=== PATIENT | male | born 1930 | race Caucasian/White ===

== ENCOUNTER 2017-03-24 12:03 | Inpatient (IN) ==
--- NOTE | 2017-03-24 13:48 | XRay Report ---
XR chest 2V Indication: Lung mass. Chest 2 views: Comparison 02/29/2016 plain film, and CT 02/26/2016. Rightr middle lobe mass is again shown measuring approximately 3 cm diameter. On a CT PE study from 02/26/2016, the lesion was 20 mm diameter. Chronic bilateral pleural effusions or pleural thickening shown posteriorly, and there is continued interstitial coarsening of both lungs diffusely, especially at the lung bases. Lungs are hyperinflated. Heart size is normal and mediastinal contours unremarkable. Impression: Slight increase in size of right middle lobe mass. Given the small amount of change in one year's time, this is indolent pathology. Continued posterior pleural thickening or chronic effusions, small. Diffuse interstitial lung disease and pulmonary hyperinflation. PROCEDURE INTERPRETED AT [facility] DEPARTMENT OF RADIOLOGY Final Report Signed by: Brad Gillette M.D.
[2017-03-24] MEDS ORDERED: ALBUTEROL 2.5 MG/3 ML NEB RESP TX PRN (15:18)
--- NOTE | 2017-03-24 15:18 | Emergency Department Note ---
Levi Agee Manpreet, am scribing for, and in the presence of, Derek Og Jr., MD 13:09. Earle Agee Marvin Jr., MD, personally performed the services described in this documentation, ascribed by Ray Sims in my presence, and it is both accurate and complete . Arrival - Arrival Chief Complaint: Non-Specific Stated Complaint: shortness of breath ED Nursing Triage Note: Transfer from [facility] ER for further evaluation of pneumonia. c/o swelling to bilateral lower extremities x 4 days. c/o low back pain onset 5 weeks ago. Denies shortness of breath. Mode of Arrival: Stretcher Limitations: No Limitations Source: Patient - History of Present Illness HPI Narrative: Pt is a 86 y/o male who is transferred from [facility] for further evaluation. Pt initially went to the [facility] ER because of swelling to Bilat LE' s since 4 days. At [facility], they did and chest X-ray which relaved something that is considerd a mass or PNA. Pt had a Chest X-ray done last year which revealed this mass but the [facility] ER though it was either getting bigger or PNA. Pt denies any SOB. Pt has chronic lower back pain that is being treated by [facility]. Onset (ago): day(s) (4 days ago) Consistency: constant Severity: moderate Allergies/Adverse Reactions: Allergies Allergy/AdvReac Type Severity Reaction Status Date / Time acetaminophen [From [place]] Allergy Unknown/Unable Verified 03/24/17 12:14 to obtain hydrocodone [From [place]] Allergy Unknown/Unable Verified 03/24/17 12:14 to obtain Home Medications: Home Medications Medication Instructions Recorded Confirmed Type Levothyroxine Sodium 125 mcg PO DAILY 02/20/16 02/27/16 History Omeprazole 40 mg PO DAILY 02/20/16 02/27/16 History Ascorbic Acid Tab [Vitamin C Tab] 500 mg PO DAILY 02/26/16 02/27/16 History Multivitamin [One Daily] 500 mg PO DAILY 02/26/16 02/27/16 History Selenium [Selenium Tab] 100 mcg PO DAILY 02/26/16 02/27/16 History Acetaminophen Tab [Tylenol Tab] 650 mg PO Q4H PRN #0 tablet 02/29/16 Rx Albuterol/Ipratropium Neb [Duoneb] 3 ml RESP TX TID #90 nebulization 02/29/16 Rx solution Bisacodyl Tab [Dulcolax Tab] 10 mg PO DAILY PRN #0 tablet 02/29/16 Rx Furosemide Tab [Lasix Tab] 40 mg PO DAILY PRN #30 tablet 02/29/16 Rx HYDROcodone/ACETAMIN 7.5-325 2 tablet PO Q4H PRN #30 tablet 02/29/16 Rx [[place] 7.5-325] Levofloxacin Tab [Levaquin Tab] 750 mg PO DAILY #10 tablet 02/29/16 Rx methylPREDNISolone DOSEPAK [Medrol 4 mg PO DIRECTED #1 pack 02/29/16 Rx Dosepak] Review of System - Review of System 12 point system: reviewed and no additional remarkable complaints except as stated - Review of System Constitutional: Absent: chills, diaphoresis, fever Respiratory: Absent: cough, respiratory distress Cardiovascular: Present: edema (Bilat LE's). 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) Endocrine: History of: Thyroid Disorder Respiratory: History of: COPD, Respiratory Problems (stoma to the neck) Gastrointestinal: No history of: GERD Musculoskeletal: History of: Back/Neck Problems, Musculoskeletal Problems ( RIGHT HIP REPLACEMENT) Other: History of: Cancer (throat cancer) - Surgical History Orthopedic Surgeries: Surgical HX of;: Total Hip Replacement (right ) - Family History Family History: Reports;: Family Cancer (mother and father) Denies;: Family Anesthesia Reaction, Family Diabetes, Family Heart Disease, Family Hypertension, Family Psychiatric Problems, Family Stroke - Social History Smoking Status: Current every day smoker Frequency of Alcohol Use: None Type of Drug Use: None Exam Physical Examination: General: Well-developed well-nourished, no apparent distress. Head: Normocephalic, atraumatic. Eyes: PERRLA, EOMI. Nose: No obvious acute deformities or discharge. Mouth: No obvious acute injury. Neck: Full range of motion without obvious pain. No midline tender to palpation. Patient had had a previous trach and talks with an artificial voice box Lymphatic: no significant lymphadenopathy noted. Lungs: Clear to auscultation bilaterally, normal and equal air movement bilaterally, no obvious rales or wheezing. Heart: regular rate and rhythm, no obvious mummers. Peripheral vasculature: Mild pitting edema to lower extremities Abdomen: Soft nontender, nondistended, normal active bowel sounds. Skin: No obivous acute lesions noted Musculoskeletal: No gross deformities. Neurological: No focal findings, cranial nerves II through XII grossly normal. Psychiatric: Appropriate mood.. : Deferred Vital Signs: Vital Signs Temperature 98.4 F 03/24/17 12:03 Pulse Rate 81 03/24/17 14:00 Respiratory Rate 24 03/24/17 14:00 Blood Pressure 112/66 03/24/17 14:00 O2 Sat by Pulse Oximetry 94 L 03/24/17 14:00 Course Course Narrative: Differential diagnosis: Congestive heart failure, lung mass, pneumonia. Review of labs from [facility] showed BUN of 24 creatinine 1.1, calcium 10.9, anion gap 21.9, albumin 2.5, alkaline phosphatase 118, AST 56, CBC showed a WBC of 14.8, hematocrit 37.3, platelet 198, x-rays were taken per patient and family but at this time I do not have access to those. Patient says he has a lung mass that Dr. Lee is following that is chronic. There is some question if it is growing or if he has a superimposed pneumonia also. That is the reason he was transferred here. Patient went to the ER today for evaluation of his lower extremity edema - Reevaluation(s) Reevaluation #1: Patient unchanged. He says he does not feel comfortable going home. He had one episode of hypotension since he has been here and he says his breathing and swelling is considerably worse. Therefore I talked to the hospitalist and they will admit this patient. Patient is already had one dose of Rocephin at the other hospital Time: 15:15 Results - Labs Lab Results: I have reviewed the patients labs (Labs reviewed from the other hospital) - Diagnostic Findings Procedure: Chest x-ray: report reviewed by me, image reviewed by me (Slight incerase in size of right middle lobe mass. Given the small amount of charge in one year's time, this indolent pathology. Continued posterior pleural thickening or chronic effusions, small. Diffuse interstitial lung disease and pulmonary hyperinflation.) Disposition Clinical Impression: Acute on chronic pulmonary disease, Chronic pulmonary mass, Neutrophilia, Hypotension, Lower extremity edema, Hypoalbuminemia Case discussed with: patient, patient's family Disposition: Still a Patient Time of Disposition: 15:17
[2017-03-24] MEDS ORDERED: FUROSEMIDE 20 MG TABLET PO PRN (15:20)
[2017-03-24] MEDS ORDERED: POTASSIUM CHLORIDE RIDER 10 MEQ in PREMIX 1 EACH IV PRN (15:32)
[2017-03-24] MEDS ORDERED: MAGNESIUM SULF RIDER 2 GM in PREMIX 1 EACH IV PRN (15:32)
[2017-03-24] MEDS ORDERED: MAGNESIUM SULF RIDER 4 GM in PREMIX 1 EACH IV PRN (15:32)
[2017-03-24 16:00] LABS: Basophils % 0.2 % (0.0-0.8); Eosinophils % 0.2 % (0.00-10.9); Hematocrit 35.4 VOL% (42.0-52.0); Hemoglobin 11.9 GM/DL (14.0-18.0); Immature Granulocytes % 4.9 %; Immature Granulocytes Absolute 0.61 #; Lymphocytes # 0.7 10*3/uL (1.4-4.0); Lymphocytes % 5.3 % (21.2-54.2); Mean Corpuscular HGB Conc 33.6 GM/DL (32-36); Mean Corpuscular Hemoglobin 31 PG (27-34); Mean Platelet Volume 9.9 FL (9.6-12.0); Monocytes # 1.1 10*3/uL (0.11-0.8); Monocytes % 8.7 % (1.7-12.7); NRBC # 0.05 10*3/uL; Neutrophils # 10.2 10*3/uL (1.4-7.4); Neutrophils % 80.7 % (38.7-73.9); Platelet Count 174 T/CUMM (130-400); Red Blood Count 3.89 MC/CUMM (3.8-5.5); Red Cell Distribution Width 15.1 % (9.3-17.3); White Blood Count 12.6 T/CUMM (4-12)
--- NOTE | 2017-03-24 16:29 | Hospitalist History & Physical ---
<Oc Frankel - Last Filed: 03/24/17 16:26> Assessment and Plan (1) COPD (chronic obstructive pulmonary disease) Status: Acute Assessment and plan: We will start empiric antibiotic coverage, inhaled bronchodilators, intravenous corticosteroids. We will consult pulmonology to evaluate and assist during the clinical encounter. We will recheck chest x-ray in a.m. Current Visit: No Qualifiers: COPD type: unspecified COPD Qualified Code(s): J44.9 - Chronic obstructive pulmonary disease, unspecified (2) Pneumonia Status: Acute Assessment and plan: We will start empiric antibiotic coverage, inhaled bronchodilators, and intravenous corticosteroids. We will treat pneumonia for good measures however , pulmonary has been consulted to evaluate the status of the right lobe lung mass. Current Visit: No Qualifiers: Pneumonia type: due to unspecified organism History of Present Illness Chief complaint: Shortness of breath History of present illness: This is a chronically ill 86-year-old male that presented to the ED at [facility] this afternoon as a transfer from the [facility] for further evaluation of shortness of breath. The patient has a medical history significant for oral cancer, current nicotine use, hypothyroidism, chronic obstructive pulmonary disease, chronic neck and back pain, and throat cancer. Patient has a surgical history significant for right total hip replacement and laryngectomy. The patient reported the onset of symptoms 4 days prior to presentation. He initially presented to the ED at [facility] for evaluation of swelling to his bilateral lower extremities. During the clinical encounter and shoulder, the patient underwent chest x-ray which was significant for what was suggested to be a mass or pneumonia. The patient reported that he had had a chest x-ray on last year which revealed a mass however the physician at the [facility] suggested that the mass was either getting bigger or the patient had a possible pneumonia. The patient was subsequently transferred to [facility] for further evaluation. The patient was assessed at the time of ED presentation. Labs were obtained which were significant for white blood cell count at 12.6, hemoglobin 11.9, hematocrit 35.4, and platelet count 174. Chest x-ray reported slight increase in size of the right middle lobe mass and continued posterior pleural thickening or chronic effusion that are small in nature. In addition diffuse interstitial lung disease and pulmonary hyperinflation was noted. After brief discussion with both and Dr. Moore, the patient will be admitted to the hospitalist service. Due to the complexity of the patient's current respiratory history; we will consult pulmonary to evaluate and assist during the clinical encounter. Home medications have been reviewed and reconciled. CODE STATUS discussed;patient is a FULL CODE. Home Medications Medication Instructions Recorded Confirmed Type Levothyroxine Sodium 125 mcg PO DAILY 02/20/16 02/27/16 History Omeprazole 40 mg PO DAILY 02/20/16 02/27/16 History Ascorbic Acid Tab [Vitamin C Tab] 500 mg PO DAILY 02/26/16 02/27/16 History Multivitamin [One Daily] 500 mg PO DAILY 02/26/16 02/27/16 History Selenium [Selenium Tab] 100 mcg PO DAILY 02/26/16 02/27/16 History Acetaminophen Tab [Tylenol Tab] 650 mg PO Q4H PRN #0 tablet 02/29/16 Rx Albuterol/Ipratropium Neb [Duoneb] 3 ml RESP TX TID #90 nebulization 02/29/16 Rx solution Bisacodyl Tab [Dulcolax Tab] 10 mg PO DAILY PRN #0 tablet 02/29/16 Rx Furosemide Tab [Lasix Tab] 40 mg PO DAILY PRN #30 tablet 02/29/16 Rx HYDROcodone/ACETAMIN 7.5-325 2 tablet PO Q4H PRN #30 tablet 02/29/16 Rx [[place] 7.5-325] Levofloxacin Tab [Levaquin Tab] 750 mg PO DAILY #10 tablet 02/29/16 Rx methylPREDNISolone DOSEPAK [Medrol 4 mg PO DIRECTED #1 pack 02/29/16 Rx Dosepak] Allergies Allergy/AdvReac Type Severity Reaction Status Date / Time acetaminophen [From [place]] Allergy Unknown/Unable Verified 03/24/17 12:14 to obtain hydrocodone [From [place]] Allergy Unknown/Unable Verified 03/24/17 12:14 to obtain Medical,Surgical,& Family Hx - Medical History HEENT: History of: Oral Cancer (voical box removed), 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) Endocrine: History of: Thyroid Disorder Respiratory: History of: COPD, Respiratory Problems (stoma to the neck) Gastrointestinal: No history of: GERD Musculoskeletal: History of: Back/Neck Problems, Musculoskeletal Problems ( RIGHT HIP REPLACEMENT) Other: History of: Cancer (throat cancer) - Surgical History HEENT Surgeries: Surgical HX of: Thyroid Surgery (laryngeal cancer) Orthopedic Surgeries: Surgical HX of;: Total Hip Replacement (right ) - Family History Family History: Reports;: Family Cancer (mother and father) Denies;: Family Anesthesia Reaction, Family Diabetes, Family Heart Disease, Family Hypertension, Family Psychiatric Problems, Family Stroke - Social History Smoking Status: Current every day smoker Frequency of Alcohol Use: None Type of Drug Use: None 12 point system: reviewed and no additional remarkable complaints except as stated Exam - Constitutional Vitals: Period Temp Pulse Resp BP Sys/Yuan Pulse Ox Last 24 Hr 98.4 F-98.4 F 80-87 15-25 101-116/62-73 93-94 General appearance: normal weight, no acute distress - Head Head exam: Present: normal inspection, normocephalic, atraumatic - Eye Eye exam: Present: EOMI. 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 Absent: rales, rhonchi, stridor, wheezes - Cardiovascular Cardiovascular exam: Present: regular rate and rhythm. Absent: carotid bruit, diastolic murmur, gallop, JVD, rubs, systolic murmur - GI/Abdominal GI/Abdominal exam: Present: normal bowel sounds, soft - Extremities Exam Extremities exam: Present: edema (+3 edema noted bilateral lower extremity) - Back Exam Back exam: Present: normal inspection - Neurological Exam Neurological exam: Present: alert, oriented X3, CN II-XII intact - Psychiatric Psychiatric exam: Present: normal affect, normal mood - Skin Skin exam: Present: normal color, warm, dry Results - Labs CBC & BMP: 03/24/17 15:39 Lab Results: I have reviewed the past 24 hour labs <Yvonne Moore - Last Filed: 03/24/17 16:54> History of Present Illness History of present illness: Patient seen and examined independently of SANDY Frankel, agree with history, assessment and plan as documented. 86 y/o WM being admitted with sob and BLE edema. CXR with some increase in size of known lung mass. Will get pulmonary to assist. Will get bnp, echo and d-dimer. For now duonebs, antibiotics and steroids. Exam - Constitutional Vitals: Period Temp Pulse Resp BP Sys/Yuan Pulse Ox Last 24 Hr 98.4 F-98.4 F 80-87 15-25 101-116/62-73 93-94 Results - Labs CBC & BMP: 03/24/17 15:39
[2017-03-24] MEDS ORDERED: ONDANSETRON 4 MG/2 ML VIAL IV PRN (17:33)
[2017-03-24 18:41] LABS: Band Neutrophils 1 % (0-10); Lymphocytes 7 % (20-55); Segmented Neutrophils 88 % (50-85); Total Cells Counted 100
[2017-03-24 18:42] LABS: Burr Cells Few; Ovalocytes Few; Platelet Estimate Normal; Poikilocytosis Slight
[2017-03-24] MEDS: methylPREDNISolone SOD SUC 40 MG/1 ML VIAL IV SCH (18:59)
[2017-03-24] MEDS: ALBUTEROL/IPRATROPIUM 3 ML NEB RESP TX SCH (19:48)
[2017-03-24] MEDS: LEVOFLOXACIN INJ 750 MG in PREMIX 1 EACH IV SCH (22:59)
[2017-03-25] MEDS: PIPERACILLIN/TAZOBACTAM 3,375 MG in SODIUM CHLORIDE 0.9% 100 ML IV SCH ×3 (00:26→17:48)
[2017-03-25] MEDS: methylPREDNISolone SOD SUC 40 MG/1 ML VIAL IV SCH ×3 (02:05→22:17)
[2017-03-25] MEDS: ALBUTEROL/IPRATROPIUM 3 ML NEB RESP TX SCH ×4 (02:10→19:40)
[2017-03-25 03:08] LABS: Basophils % 0.2 % (0.0-0.8); Hematocrit 36.6 VOL% (42.0-52.0); Hemoglobin 12.3 GM/DL (14.0-18.0); Immature Granulocytes % 5.4 %; Immature Granulocytes Absolute 0.75 #; Lymphocytes # 0.5 10*3/uL (1.4-4.0); Lymphocytes % 3.4 % (21.2-54.2); Mean Corpuscular HGB Conc 33.6 GM/DL (32-36); Mean Corpuscular Hemoglobin 31 PG (27-34); Mean Corpuscular Volume 91.7 FL (87-102); Mean Platelet Volume 10.2 FL (9.6-12.0); Monocytes # 0.4 10*3/uL (0.11-0.8); Monocytes % 2.5 % (1.7-12.7); NRBC # 0.04 10*3/uL; Neutrophils # 12.4 10*3/uL (1.4-7.4); Neutrophils % 88.5 % (38.7-73.9); Platelet Count 174 T/CUMM (130-400); Red Blood Count 3.99 MC/CUMM (3.8-5.5)
[2017-03-25 03:29] LABS: Band Neutrophils 9 % (0-10); Lymphocytes 7 % (20-55); Metamyelocytes 1 %; Myelocytes 2 %; Platelet Estimate Normal; Segmented Neutrophils 79 % (50-85); Total Cells Counted 100
[2017-03-25 03:50] LABS: Osmolality,Calculated 281.4 MOS/KG (273-304); Potassium 4.6 MMOL/L (3.5-5.1); Thyroid Stimulating Hormone 0.248 uIU/ml (0.358-3.74)
[2017-03-25] MEDS ORDERED: FUROSEMIDE 40 MG/4 ML VIAL IV SCH (09:00)
[2017-03-25] MEDS ORDERED: NON-FORMULARY MEDICATION (Omeprazole [Omeprazole] 40 MG) PO SCH (09:00)
[2017-03-25] MEDS: LEVOTHYROXINE 125 MCG TABLET PO SCH (09:32)
[2017-03-25] MEDS: PANTOPRAZOLE 40 MG TABLET PO SCH (09:32)
[2017-03-25] MEDS: MULTIVITAMIN (CENTRUM) TABLET PO SCH (09:32)
[2017-03-25] MEDS: ENOXAPARIN 40 MG/0.4 ML SYRINGE SUBCUT SCH (09:32)
[2017-03-25] MEDS: FUROSEMIDE 40 MG/4 ML VIAL IV SCH ×2 (09:33→22:17)
--- NOTE | 2017-03-25 10:14 | CT Report ---
CT chest PE study Indication: Shortness of breath. CT CHEST WITH CONTRAST, PE PROTOCOL DLP: 283 mGy*cm. One or more of the following dose reduction techniques was used: Automated exposure control, adjustment of the mA and/or kV according the patient size, or use of iterative reconstruction techniques. Comparison: 02/26/2016 Technique: Axial CT images of the chest were obtained during the pulmonary arterial phase of contrast injection. Coronal reconstructions were provided. Omnipaque 350, 80 cc. Findings: No central, lobar or segmental pulmonary artery filling defects. Main pulmonary artery is normal in size. Heart size is upper limits normal. Calcified atheromatous disease is present with elongation of thoracic aorta. Mediastinal lymphadenopathy is present. Largest node is subcarinal measuring 24 x 30 mm in size. No axillary or hilar lymphadenopathy. Small bilateral pleural effusions are present with atelectasis of both lower lobes. There is a spiculated right middle lobe mass measuring 38 x 31 mm, previously 18 mm diameter, and another spiculated nodule within the lateral lingula measuring 11 mm diameter, new. 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 No infiltrates. Limited views of the upper abdomen show calcifications in the right upper quadrant fat adjacent to the liver, similar to the previous exam. Upper abdomen is otherwise benign-appearing. Bone windows show extensive degenerative changes throughout the thoracic spine. No acute compression fractures. Impression: 1. Increase in size of right middle lobe pulmonary mass, now 38 x 31 mm, previously 18 mm. 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 Progressive mediastinal lymphadenopathy. 2. Small bilateral pleural effusions with bilateral lower lobe atelectasis. 3. No evidence of pulmonary embolus. PROCEDURE INTERPRETED AT [facility] DEPARTMENT OF RADIOLOGY Final Report Signed by: Brad Gillette M.D.
[2017-03-25] MEDS ORDERED: ACETAMINOPHEN 325 MG TABLET PO PRN (12:06)
[2017-03-25] MEDS ORDERED: KETOROLAC 10 MG TABLET PO PRN (15:13)
--- NOTE | 2017-03-25 15:34 | Hospitalist Progress Note ---
Assessment and Plan (1) COPD (chronic obstructive pulmonary disease) Status: Acute Assessment and plan: Duonebs, steroids, abx Current Visit: No Qualifiers: COPD type: unspecified COPD Qualified Code(s): J44.9 - Chronic obstructive pulmonary disease, unspecified (2) Pulmonary nodule Status: Acute Assessment and plan: Known right pulmonary nodule, now increased in size Also wiht new spiculated pulmonry nodule in lingulla and mediastinal lymophenopathy Pulmonary consulted Current Visit: No (3) Lower extremity edema Status: Acute Assessment and plan: Lasix IV 40 BID Echo ordered BNP is elevated Current Visit: Yes Hospitalist: Subjective Interval history: No acute events overnight. Patient feels a little better today. He feels like his chest congestion is better. Exam - Constitutional Vitals: Period Temp Pulse Resp BP Sys/Yuan Pulse Ox Last 24 Hr 96.9 F-98.1 F 69-103 11-24 98-121/50-79 93-98 General appearance: normal weight - Head Head exam: Present: normocephalic, atraumatic - Eye Eye exam: Present: EOMI Pupils: Present: AMAN - ENT ENT exam: Present: normal exam - Neck Neck exam: Present: normal inspection - Respiratory Respiratory exam: Present: clear to auscultation bilaterally. Absent: rhonchi, wheezes - Cardiovascular Cardiovascular exam: Present: regular rate and rhythm - GI/Abdominal GI/Abdominal exam: Present: normal bowel sounds, soft. Absent: tenderness, rebound - Extremities Exam Extremities exam: Present: normal inspection - Back Exam Back exam: Present: normal inspection - Neurological Exam Neurological exam: Present: alert, oriented X3 - Psychiatric Psychiatric exam: Present: normal affect, normal mood - Skin Skin exam: Present: warm, intact Results - Labs CBC & BMP: 03/25/17 02:54 03/25/17 02:54
[2017-03-25] MEDS: BISACODYL 5 MG TABLET PO PRN (15:45)
[2017-03-25] MEDS: LEVOFLOXACIN INJ 750 MG in PREMIX 1 EACH IV SCH (22:05)
[2017-03-25] MEDS: oxyCODONE ER 10 MG TABLET PO SCH (22:05)
[2017-03-26] MEDS: ALBUTEROL/IPRATROPIUM 3 ML NEB RESP TX SCH ×4 (01:10→20:14)
[2017-03-26] MEDS: PIPERACILLIN/TAZOBACTAM 3,375 MG in SODIUM CHLORIDE 0.9% 100 ML IV SCH ×2 (03:24→09:53)
[2017-03-26 04:50] LABS: Basophils % 0.1 % (0.0-0.8); Hematocrit 40.1 VOL% (42.0-52.0); Immature Granulocytes % 4.5 %; Lymphocytes # 0.2 10*3/uL (1.4-4.0); Mean Corpuscular HGB Conc 32.4 GM/DL (32-36); Mean Corpuscular Hemoglobin 31 PG (27-34); Mean Corpuscular Volume 94.1 FL (87-102); Mean Platelet Volume 10.3 FL (9.6-12.0); Monocytes # 0.9 10*3/uL (0.11-0.8); Monocytes % 4.2 % (1.7-12.7); NRBC # 0.05 10*3/uL; Neutrophils # 19.9 10*3/uL (1.4-7.4); Neutrophils % 90.2 % (38.7-73.9); Platelet Count 201 T/CUMM (130-400); Red Blood Count 4.26 MC/CUMM (3.8-5.5); Red Cell Distribution Width 15.9 % (9.3-17.3); White Blood Count 22.1 T/CUMM (4-12)
[2017-03-26 05:18] LABS: Calcium 11.7 MG/DL (8.5-10.1); Magnesium 2.3 MG/DL (1.8-2.4); Osmolality,Calculated 284.7 MOS/KG (273-304); Potassium 3.9 MMOL/L (3.5-5.1)
[2017-03-26 05:29] LABS: Band Neutrophils 3 % (0-10); Lymphocytes 1 % (20-55); Segmented Neutrophils 94 % (50-85); Total Cells Counted 100
[2017-03-26 05:30] LABS: Anisocytosis 1+; Platelet Estimate Normal
--- NOTE | 2017-03-26 07:54 | ECHO Report ---
Steve Roa Exam Date: 03/25/2017 11:35 Referring Physician: Technologist: Rosetta Sheets Age: 86 Ht (in): 58 Wt (lb): 151 Gender: M Exam Location: [facility] Echo Indications: pneumonia, Hx. CHF, SOB, GERD, edema, hypoalbuminemia, hypotension BP: 98 / 54 HR: 76 Rhythm: Sinus Technical Quality: IMPRESSIONS Normal chamber sizes Normal LV systolic function with ejection fraction estimated be 55% without segmental wall motion abnormality Aortic sclerosis without stenosis Mitral annular calcification with mild mitral thickening, with 1-2+ mitral regurgitation 1+ aortic and tricuspid regurgitation with RVSP 31 mmHg plus RAP MEASUREMENTS (Male / Female) Normal Values 2D ECHO LV Diastolic Diameter PLAX 3.5 cm 4.2 - 5.9 / 3.9 - 5.3 cm LV Systolic Diameter PLAX 2.2 cm LV Fractional Shortening PLAX 37.7 % IVS Diastolic Thickness 1.0 cm 0.6 - 1.0 / 0.6 - 0.9 cm LVPW Diastolic Thickness 1.1 cm 0.6 - 1.0 / 0.6 - 0.9 cm RV Internal Dim ED PLAX 2.7 cm Aortic Root Diameter 2.8 cm LA Systolic Diameter LX 3.1 cm 3.0 - 4.0 / 2.7 - 3.8 cm DOPPLER TR Peak Velocity 276.0 cm/s TR Peak Gradient 30.5 mmHg FINDINGS Left Ventricle Normal left ventricular cavity size. Mild concentric left ventricular hypertrophy with diastolic dysfunction. Left ventricular ejection fraction is estimated at. Right Ventricle Mildly increased right ventricular size. Right Atrium Moderately increased right atrial size. Left Atrium The left atrium is mildly enlarged. Mitral Valve Mildly thickened mitral valve with mild mitral regurgitation. Aortic Valve Mild aortic valve sclerosis without stenosis. Trace aortic valve regurgitation. Tricuspid Valve Morphologically normal tricuspid valve. Trace tricuspid valve regurgitation. Tricuspid regurgitation velocities suggest a PAP of 30. 5 mmHg + RAP. Pulmonic Valve Morphologically normal pulmonic valve. Trace pulmonary valve regurgitation. Pericardium No pericardial effusion. Aorta Normal size aortic root and proximal ascending aorta. Arcadio Talbot (Electronically Signed) Final Date: 26 March 2017 07:52
[2017-03-26] MEDS: SELENIUM 200 MCG TABLET PO SCH (09:52)
[2017-03-26] MEDS: MULTIVITAMIN (CENTRUM) TABLET PO SCH (09:52)
[2017-03-26] MEDS: LEVOTHYROXINE 125 MCG TABLET PO SCH (09:52)
[2017-03-26] MEDS: ASCORBIC ACID 500 MG TABLET PO SCH (09:53)
[2017-03-26] MEDS: oxyCODONE ER 10 MG TABLET PO SCH ×2 (09:53→21:01)
[2017-03-26] MEDS: ENOXAPARIN 40 MG/0.4 ML SYRINGE SUBCUT SCH (09:54)
[2017-03-26] MEDS: PANTOPRAZOLE 40 MG TABLET PO SCH (09:54)
[2017-03-26] MEDS: FUROSEMIDE 40 MG/4 ML VIAL IV SCH ×2 (09:55→21:30)
[2017-03-26] MEDS: methylPREDNISolone SOD SUC 40 MG/1 ML VIAL IV SCH (10:00)
--- NOTE | 2017-03-26 14:36 | Pulmonology Consult Note ---
Assessment and Plan (1) Lung mass Status: Acute Assessment and plan: Patient with growing mass, mediastinal adenopathy and pleural effusion. Concerning for primary lung malignancy. It is unclear whether the patient is undergoing evaluation for this by Dr Lee already. Will discuss with him. If not, would start with sampling of pleural fluid, if this is positive then diagnosis and staging are accomplished in one procedure. Could also consider PET scan looking for more distant mets. Given patients poor performance status and history of smoking and H&N cancer, his overall prognosis is extremely poor in the setting of lung cancer. Would also strongly consider discussing hospice as well. The majority of this can be done as an outpatient if patient has doctors appointment in [place] on Monday. Does not need to remain in hospital for lung mass workup. Dr Lee will be back tomorrow, pt will either be seen by him or Dr Crews Current Visit: Yes (2) COPD (chronic obstructive pulmonary disease) Status: Acute Assessment and plan: Does not appear to be having acute exacerbation, can continue home meds. If there is any concern for exacerbation would do prednisone and duonebs Current Visit: No Qualifiers: COPD type: unspecified COPD Qualified Code(s): J44.9 - Chronic obstructive pulmonary disease, unspecified History of Present Illness History of present illness: Mr. Roa is a 86 year old male. Consulted for evaluation of lung mass. Patient has a history of head and neck cancer, speaks with a electronic speaking device. Very difficult to understand, but apparently he has seen Dr Lee before for the CT findings. He also has some kind of appointment in [place] on monday for ENT(?). Unable to understand much more information from the patient so other information obtained from H&P. Aside from the H&N cancer, he is reportedly still actively smoking Home Medications Medication Instructions Recorded Confirmed Type Levothyroxine Sodium 125 mcg PO DAILY 02/20/16 03/24/17 History Omeprazole 40 mg PO DAILY 02/20/16 03/24/17 History Ascorbic Acid Tab [Vitamin C Tab] 500 mg PO DAILY 02/26/16 03/24/17 History Multivitamin [One Daily] 500 mg PO DAILY 02/26/16 03/24/17 History Selenium [Selenium Tab] 100 mcg PO DAILY 02/26/16 03/24/17 History Acetaminophen Tab [Tylenol Tab] 650 mg PO Q4H PRN #0 tablet 02/29/16 03/24/17 Rx Furosemide Tab [Lasix Tab] 40 mg PO DAILY PRN #30 tablet 02/29/16 03/24/17 Rx Methylphenidate HCl [Concerta] 5 mg PO DAILY 03/25/17 03/25/17 History Oxycodone HCl 5 mg PO Q8HR PRN 03/25/17 03/25/17 History Oxycodone HCl [Oxycontin] 10 mg PO Q12HR 03/25/17 03/25/17 History Allergies Allergy/AdvReac Type Severity Reaction Status Date / Time acetaminophen [From [place]] Allergy Unknown/Unable Verified 03/24/17 12:14 to obtain hydrocodone [From [place]] Allergy Unknown/Unable Verified 03/24/17 12:14 to obtain ROS unobtainable: other (difficulty communicating with speaking device) Exam (Pulmonay) H&P - Constitutional Vitals: Period Temp Pulse Resp BP Sys/Yuan Pulse Ox Last 24 Hr 97.2 F-98.6 F 51-138 16-20 90-117/52-62 89-98 General appearance: no acute distress, cachectic - Head Head exam: Present: normal inspection - Respiratory Respiratory exam: Absent: accessory muscle use, wheezes - Cardiovascular Cardiovascular exam: Present: regular rate and rhythm Medical,Surgical,& Family Hx - Medical History HEENT: History of: Oral Cancer (vocal box removed), 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) Endocrine: History of: Thyroid Disorder Respiratory: History of: COPD, Respiratory Problems (stoma to the neck) Gastrointestinal: No history of: GERD Musculoskeletal: History of: Back/Neck Problems, Musculoskeletal Problems ( RIGHT HIP REPLACEMENT) Other: History of: Cancer (throat cancer) - Surgical History HEENT Surgeries: Surgical HX of: Thyroid Surgery (laryngeal cancer) Orthopedic Surgeries: Surgical HX of;: Total Hip Replacement (right ) - Family History Family History: Reports;: Family Cancer (mother and father) Denies;: Family Anesthesia Reaction, Family Diabetes, Family Heart Disease, Family Hypertension, Family Psychiatric Problems, Family Stroke - Social History Smoking Status: Current every day smoker Frequency of Alcohol Use: None Type of Drug Use: None Results - Labs CBC & BMP: 03/26/17 04:36 03/26/17 04:36 Lab Results: I have reviewed the past 24 hour labs - Diagnostic Findings Procedure: Chest x-ray: image reviewed by me, report reviewed by me (Reviewed image and report. 3cm RML mass, 1cm lingula nodule, R>L pleural effusion, 4R and 7 lymphadenopathy)
--- NOTE | 2017-03-26 15:12 | Hospitalist Progress Note ---
Assessment and Plan (1) COPD (chronic obstructive pulmonary disease) Status: Acute Assessment and plan: Duonebs, steroids, abx Current Visit: No Qualifiers: COPD type: unspecified COPD Qualified Code(s): J44.9 - Chronic obstructive pulmonary disease, unspecified (2) Pulmonary nodule Status: Acute Assessment and plan: Known right pulmonary nodule, now increased in size Also wiht new spiculated pulmonary nodule in lingula and mediastinal lymphadenopathy Pulmonary consulted Current Visit: No (3) Lower extremity edema Status: Acute Assessment and plan: Lasix IV 40 BID BNP is elevated Current Visit: Yes Hospitalist: Subjective Interval history: No acute events overnight. Patient feeling better today. Shortness of breath is better. Exam - Constitutional Vitals: Period Temp Pulse Resp BP Sys/Yuan Pulse Ox Last 24 Hr 97.2 F-98.6 F 51-138 16-20 90-117/52-62 89-98 General appearance: normal weight - Head Head exam: Present: normocephalic, atraumatic - Eye Eye exam: Present: EOMI Pupils: Present: AMAN - ENT ENT exam: Present: normal exam - Neck Neck exam: Present: normal inspection - Respiratory Respiratory exam: Present: clear to auscultation bilaterally. Absent: rhonchi, wheezes - Cardiovascular Cardiovascular exam: Present: regular rate and rhythm - GI/Abdominal GI/Abdominal exam: Present: normal bowel sounds, soft. Absent: tenderness, rebound - Extremities Exam Extremities exam: Present: normal inspection - Back Exam Back exam: Present: normal inspection - Neurological Exam Neurological exam: Present: alert, oriented X3 - Psychiatric Psychiatric exam: Present: normal affect, normal mood - Skin Skin exam: Present: warm, intact Results - Labs CBC & BMP: 03/26/17 04:36 03/26/17 04:36
[2017-03-26] MEDS: METHYLPHENIDATE HCL 5 MG PO SCH (17:23)
[2017-03-26] MEDS: oxyCODONE IR 5 MG TABLET PO PRN (18:03)
[2017-03-26] MEDS: BISACODYL 5 MG TABLET PO PRN (21:04)
[2017-03-27] MEDS: ALBUTEROL/IPRATROPIUM 3 ML NEB RESP TX SCH ×3 (00:25→12:15)
[2017-03-27 04:59] LABS: Basophils % 0.1 % (0.0-0.8); Hematocrit 40.7 VOL% (42.0-52.0); Hemoglobin 13.4 GM/DL (14.0-18.0); Immature Granulocytes % 3.7 %; Immature Granulocytes Absolute 0.74 #; Lymphocytes # 0.3 10*3/uL (1.4-4.0); Lymphocytes % 1.7 % (21.2-54.2); Mean Corpuscular HGB Conc 32.9 GM/DL (32-36); Mean Corpuscular Hemoglobin 31 PG (27-34); Mean Corpuscular Volume 94.2 FL (87-102); Mean Platelet Volume 10.3 FL (9.6-12.0); Monocytes # 1.1 10*3/uL (0.11-0.8); Monocytes % 5.8 % (1.7-12.7); NRBC # 0.07 10*3/uL; Neutrophils # 17.5 10*3/uL (1.4-7.4); Neutrophils % 88.7 % (38.7-73.9); Platelet Count 205 T/CUMM (130-400); Red Blood Count 4.32 MC/CUMM (3.8-5.5); Red Cell Distribution Width 16.8 % (9.3-17.3); White Blood Count 19.8 T/CUMM (4-12)
[2017-03-27 05:31] LABS: Albumin 2.9 G/DL (3.4-5.0); Bilirubin,Direct 0.1 MG/DL (0.0-0.20); Bilirubin,Indirect 0.9 MG/DL (0.0-1.0); Calcium 12.2 MG/DL (8.5-10.1); Magnesium 2.4 MG/DL (1.8-2.4); Osmolality,Calculated 286.4 MOS/KG (273-304); Potassium 4.2 MMOL/L (3.5-5.1)
[2017-03-27 05:35] LABS: Band Neutrophils 2 % (0-10); Burr Cells Slight; Giant Platelets Few; Lymphocytes 2 % (20-55); Nucleated Red Blood Cells 1 (0-5); Ovalocytes Slight; Platelet Estimate Adequate; Segmented Neutrophils 92 % (50-85); Total Cells Counted 100
[2017-03-27] MEDS: oxyCODONE IR 5 MG TABLET PO PRN (06:08)
[2017-03-27] MEDS ORDERED: LEVOFLOXACIN 750 MG TABLET PO SCH (09:00)
[2017-03-27] MEDS ORDERED: predniSONE 20 MG TABLET PO SCH (09:00)
--- NOTE | 2017-03-27 09:08 | XRay Report ---
Single view the chest. Indication: Pneumonia. Comparison: March 24, 2017. The heart is normal in size. The pulmonary vasculature is normal. There are nodular masses seen within the lung oliver bilaterally, previously noted by CT, one in the right midlung field, measuring 3 cm, and In the left midlung field measuring 12 mm. There are small bilateral pleural effusions. There is right hilar prominence. Impression: Allowing for the expiratory nature of the film, the appearance of the chest is unchanged. There are bilateral pulmonary masses, areas of atelectasis, and small bilateral pleural effusions. PROCEDURE INTERPRETED AT [facility] DEPARTMENT OF RADIOLOGY Final Report Signed by: Dr. Thu Alvarez
[2017-03-27] MEDS: FUROSEMIDE 40 MG/4 ML VIAL IV SCH (09:53)
[2017-03-27] MEDS: ENOXAPARIN 40 MG/0.4 ML SYRINGE SUBCUT SCH (09:53)
[2017-03-27] MEDS: METHYLPHENIDATE HCL 5 MG PO SCH (09:54)
[2017-03-27] MEDS: SELENIUM 200 MCG TABLET PO SCH (09:54)
[2017-03-27] MEDS: oxyCODONE ER 10 MG TABLET PO SCH (09:55)
[2017-03-27] MEDS: MULTIVITAMIN (CENTRUM) TABLET PO SCH (09:55)
[2017-03-27] MEDS: LEVOTHYROXINE 125 MCG TABLET PO SCH (09:55)
[2017-03-27] MEDS: PANTOPRAZOLE 40 MG TABLET PO SCH (09:55)
[2017-03-27] MEDS: ASCORBIC ACID 500 MG TABLET PO SCH (09:55)
[2017-03-27 11:44] VITALS: BP 121/72
--- NOTE | 2017-03-27 12:25 | Pulmonology Progress Note ---
Pulmonary - PN: Subj Interval history: Patient is an 86-year-old white man that has had a previous laryngectomy and has a component of COPD. I saw him last summer when he had a bout of pneumonia. At that time he had a small right midlung pulmonary nodule and a tiny nodule on the left. He had considerable pneumonia and came back for follow -up in March. He was better and we were just going to follow the nodule a little while since we did not have any old films. He did not come back for follow-up however. Now he comes in in the right midlung nodule is larger. The left lung nodule is larger. He does have some pleural effusion. Apparently recently he had biopsies of his vertebral bodies. This was done last week. The pathology is worrisome for malignancy. Special stains are still pending. I suspect this will give us an answer however. He almost certainly has metastatic disease. He is scheduled to see ENT in [place] tomorrow. He says his breathing is doing okay now. Exam (Progress Note) - Constitutional Vitals: Period Temp Pulse Resp BP Sys/Yuan Pulse Ox Last 24 Hr 96.2 F-97.8 F 58-112 18-22 81-121/49-72 86-98 General appearance: no acute distress, under weight, other (Patient is an elderly male who looks chronically ill but is comfortable at rest.) - Head Head exam: Present: normal inspection, normocephalic - Eye Eye exam: Present: EOMI. Absent: scleral icterus Pupils: Present: AMAN - ENT ENT exam: Present: other (He is edentulous) - Neck Neck exam: Present: other (He has a permanent tracheostomy stoma.). Absent: lymphadenopathy - Respiratory Respiratory exam: Present: decreased breath sounds, prolonged expiratory phase, other (He has slight decreased breath sounds in the bases.). Absent: wheezes - Cardiovascular Cardiovascular exam: Present: regular rate and rhythm. Absent: gallop, systolic murmur - GI/Abdominal GI/Abdominal exam: Present: normal bowel sounds, soft. Absent: organomegaly, tenderness - Extremities Exam Extremities exam: Absent: calf tenderness, edema - Neurological Exam Neurological exam: Present: alert, oriented X3 - Psychiatric Psychiatric exam: Present: normal affect - Skin Skin exam: Present: warm, dry Results - Labs CBC & BMP: 03/27/17 04:42 03/27/17 04:42 - Diagnostic Findings Procedure: Chest x-ray: image reviewed by me, report reviewed by me (Chest x- ray does show a pulmonary nodule in the right midlung. He has COPD changes. There is a nodule in the left lung also. There is a small pleural effusion.), CT - chest: image reviewed by me, report reviewed by me (CT shows a multiple nodules and effusions.) Assessment and Plan (1) COPD (chronic obstructive pulmonary disease) Status: Acute Assessment and plan: The patient has a long history of chronic lung disease. He is breathing comfortably at present. 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 Current Visit: No (3) Pulmonary emboli Status: Acute Assessment and plan: He has been treated for pulmonary emboli in the past. Current Visit: No (4) Lung mass Status: Acute Assessment and plan: The patient has several areas in his lungs that are likely malignant. The nodule is larger from last year. He probably has bone metastases also. We will await pathology from his bone biopsy. This likely will give us an answer. He will not be a very good candidate for therapy. Current Visit: Yes
--- NOTE | 2017-03-27 13:32 | Discharge Summary ---
<Oc Frankel - Last Filed: 03/27/17 13:25> Hospital Course - Hospital Course Hospital Course: This is a chronically ill 86-year-old male that presented to the ED at [facility] on the afternoon of March 24, [address] from [facility] for further evaluation of shortness of breath. The patient reported a medical history significant for oral cancer, current nicotine use,hypothyroidism, chronic obstructive pulmonary disease, chronic neck and back pain, and throat cancer. Patient reported a surgical history significant for right total hip replacement and laryngectomy. The patient reported the onset of symptoms 4 days prior to presentation. He initially presented to the ED at [facility] for evaluation of swelling to his bilateral lower extremities. During the clinical encounter and shoulder, the patient underwent chest x-ray which was significant for what was suggested to be a mass or pneumonia. The patient reported that he had had a chest x-ray on last year which revealed a mass however the physician at the [facility] suggested that the mass was either getting bigger or the patient had a possible pneumonia. The patient was subsequently transferred to [facility] for further evaluation. The patient was assessed at the time of ED presentation. Labs were obtained which were significant for white blood cell count at 12.6, hemoglobin 11.9, hematocrit 35.4, and platelet count 174. Chest x-ray reported slight increase in size of the right middle lobe mass and continued posterior pleural thickening or chronic effusion that are small in nature. In addition diffuse interstitial lung disease and pulmonary hyperinflation was noted. The patient was subsequently admitted to the hospitalist group for continuation of care. Empiric antibiotic coverage, inhaled bronchodilators, and intravenous corticosteroids were initiated at the time of admission. A pulmonary consultation was requested to evaluate the status of the right lower lobe lung mass. Pulmonology reported concerns for metastasis. Upon discussion with the patient, the patient requested to follow-up in the outpatient setting with his parasitologist Dr. Lee. The patient's condition gradually improved. His BLE edema has resolved. The patient condition is stable. He has not experienced any significant overnight events. Today, we feel that he is indeed appropriate for discharge to follow-up with his primary care physician and parasitologist Dr. Lee as indicated. Diagnosis - Discharge Diagnosis (1) COPD (chronic obstructive pulmonary disease) Status: Acute (2) Pneumonia Status: Acute Discharge Plan - Discharge Data Disposition: Disch To Home/Self Care - Discharge Medications New predniSONE TAB [PredniSONE] 10 mg PO DAILY #5 tablet Continue Levothyroxine Sodium 125 mcg PO DAILY Omeprazole 40 mg PO DAILY Ascorbic Acid Tab [Vitamin C Tab] 500 mg PO DAILY Selenium [Selenium Tab] 100 mcg PO DAILY Multivitamin [One Daily] 500 mg PO DAILY Acetaminophen Tab [Tylenol Tab] 650 mg PO Q4H PRN #0 tablet PRN Reason: Fever, Headache, Mild Pain Furosemide Tab [Lasix Tab] 40 mg PO DAILY PRN #30 tablet PRN Reason: swelling Oxycodone HCl 5 mg PO Q8HR PRN PRN Reason: break through pain Methylphenidate HCl [Concerta] 5 mg PO DAILY Oxycodone HCl [Oxycontin] 10 mg PO Q12HR - Follow Up or Referral - Forms/Instructions Exam - Constitutional Vitals: Period Temp Pulse Resp BP Sys/Yuan Pulse Ox Last 24 Hr 96.2 F-97.8 F 58-112 18-22 81-121/49-72 86-98 Discharge Results Procedures and tests throughout hospitalization: Pending Orders 03/24/17 15:39 Blood Culture Stat 03/24/17 15:40 Legionella Ag, Urine Stat Procalcitonin, S Stat Streptococcus pneumoniae Ag, U Stat Labs on day of discharge: Labs from last 24 hours 03/27/17 03/27/17 04:42 04:42 WBC 19.8 H RBC 4.32 Hgb 13.4 L Hct 40.7 L MCV 94.2 MCH 31 MCHC 32.9 RDW 16.8 Plt Count 205 MPV 10.3 Neut % (Auto) 88.7 H Lymph % (Auto) 1.7 L [place] % (Auto) 5.8 Eos % (Auto) 0.0 Baso % (Auto) 0.1 Neut # (Auto) 17.5 H Lymph # (Auto) 0.3 L [place] # (Auto) 1.1 H Eos # (Auto) 0.0 Baso # (Auto) 0.0 Total Counted 100 Immature Gran % 3.7 Nucleated RBC % 0.4 Immature Gran # 0.74 Segmented Neutrophils 92 H Band Neutrophils 2 Lymphocytes 2 L Monocytes 4 Nucleated RBCs 1 Nucleated RBCs # 0.07 Platelet Estimate Adequate Giant Platelets Few Immature Plt Fraction 0.0 Ovalocytes Slight [place] Cells Slight Sodium 140 Potassium 4.2 Chloride 99 Carbon Dioxide 16 L Anion Gap 29.2 H BUN 39 H Creatinine 1.30 GFR Calculation 52 BUN/Creatinine Ratio 30.00 H Glucose 83 Calculated Osmolality 286.4 Calcium 12.2 H Magnesium 2.4 Total Bilirubin 1.00 Direct Bilirubin 0.10 Indirect Bilirubin 0.9 AST 51 H ALT 23 Alkaline Phosphatase 127 H Total Protein 6.0 L Albumin 2.9 L Preliminary micro results at discharge 03/24/17 15:39 Blood Culture - Preliminary Blood No growth at 1 day 03/24/17 15:39 Blood Culture - Preliminary Blood No growth at 1 day DS: Provider Date of admission: 03/24/17 15:16 Primary care physician: Juliet Perera NP Attending physician on admission: Yvonne Moore MD Consults: 03/24/17 17:43 Consult to Dietitian [CONS] Routine Reason for Dietitian: Dietary Consult 03/25/17 10:24 Consult to Physician [CONS] Routine Comment: increase in size of pulmonary mass Consulting Provider: Jonathan Lee Person Notified: saw pt on rounds this a.m. Date Notified: 03/27/17 Time Notified: 08:35 Discharging clinician: Oc Frankel CNP <Yvonne Moore - Last Filed: 03/27/17 13:36> Hospital Course - Time spent with patient Time with patient DS: Greater than 30 minutes (35) Diagnosis - Discharge Diagnosis (1) COPD (chronic obstructive pulmonary disease) Status: Acute (2) Pulmonary nodule Status: Acute (3) Lower extremity edema Status: Acute Discharge Plan - Discharge Data Condition at Discharge: Stable Discharge Diet: advance to your usual diet Activity: increase activity as tolerated Hygiene: no restrictions Weight Bearing at Discharge: weight bear as tolerated Contact your physician if you experience:: fever over 101, Shortness of breath
[2017-03-28 13:41] LABS: Procalcitonin, S < 0.10 ng/mL (<=0.15)
== END 2017-03-27 14:34 | disposition home health service (06) | DRG 190 ==
LOC: EDBD → EDUNIT# → N.ED 12:03 → N.EDINP 15:16 → N.2E 17:33
PROVIDERS: ADMIT Internal Medicine; ATTEND Internal Medicine